=== PATIENT | female | born 1955 | race African-American/Black ===

== ENCOUNTER 2021-07-31 11:00 | Outpatient (RCR) | payer MEDICARE, SELFPAY ==
--- NOTE | 2021-05-29 10:35 | PTOPEVAL ---
Thank you for referring Angelina Peterson to [facility].? The patient is scheduled to be seen for therapy? 2x/week for 8 weeks. Please review, sign, date and return this plan of care KRISTAL. I agree with and certify that the following plan of care is medically necessary. Referring Physician Date Attending Provider: Santiago Reynolds, MD Diagnosis right trochanteric bursitis Onset 05/30 Cause walking Additional Evaluation Detail she is retired. Hobbies are seated task, swimming, playing with grandkids. Subjective Information She walking every day 05/30, Query Text:As Reported By Patient/ when her hip pain started. She Family was performing a 30' workout program, but stopped due to pain. Water and swimming improves her pain. She does not have regular access to a pool. She had therapy 07/28 for strengthening exercises with no relief of symptoms. She has been using lidocane cream and patch with no significant relief. 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 Pain Assessment Right Hip(s) Reported Pain Level 5 Pain Description Sharp,Throbbing Pain Frequency Chronic,Continuous Greatest Pain Intensity 10 Pain Aggravating Factors ADL's,Bending,Exercise/ Activity,Prolonged Position, Supine,Walking,Weight Bearing/ Standing Lower Extremity Range of Motion General Lower Extremity Range of Motion Gross Lower Extremity Range of Motion PROM: right hip flex: 90 dg, Comments painful left hip flex: 100 dg no pain Lower Extremity Muscle Strength Testing General Lower Extremity Strength Gross Lower Extremity Strength alverto knee flex/ext: 5/5 Hip Strength Left Hip Flexion Strength 4+ Good + Hip Extension Strength 5 Normal Hip Abduction Strength 3 Fair Right Hip Flexion Strength 4 Good Hip Extension Strength 3 Fair Hip Abduction Strength 3 Fair Hip Medial Rotation Strength 4- Good - Hip Lateral Rotation Strength 3+ Fair + Hip Strength Comments jordin
--- NOTE | 2021-06-12 11:01 | PCPTNOTE ---
Patient called & cancelled scheduled appointment this date due to snowy weather.
--- NOTE | 2021-06-26 12:54 | PCPTNOTE ---
Patient called & cancelled scheduled appointment this date due to icy weather.
--- NOTE | 2021-06-26 12:55 | PCPTNOTE ---
Patient called & cancelled scheduled appointment this date due to in family.
--- NOTE | 2021-07-01 15:44 | PCPTNOTE ---
Patient called & cancelled scheduled appointment this date due to having contact dermatitis.
--- NOTE | 2021-07-04 11:56 | PTOPEVAL ---
Physical Therapy Progress Note Thank you for referring Angelina Peterson to [facility].? See summary below for patient's updated function and objective limitations. She requires additional skilled therapy services to address her remaining limitations of muscle weakness, poor movement pattern and continued pain symptoms. She is progressing towards her goals and final HEP. The patient is scheduled to be seen for therapy?2 x/week for 4 weeks. Please review, sign, date and return this plan of care KRISTAL. I agree with and certify that the following plan of care is medically necessary. Referring Physician Date Attending Provider: Santiago Reynolds, MD Diagnosis right trochanteric bursitis Onset 05/30 Cause walking Additional Evaluation Detail she is retired. Hobbies are seated task, swimming, playing with grandkids. Subjective Information She has been DX with contact Query Text:As Reported By Patient/ dermatitis from the pool. Plus Family allergic reaction to eye drops. She reports improved pain and catching sensation when getting out of bed. She is getting in/out of car with improved tech. She is perform steps with decreased symptoms. Improved lizz with lifting and squatting motion. Pain Assessment Right Hip(s) Reported Pain Level 1 Pain Description Aching,Sharp Pain Frequency Chronic,Continuous Lowest Pain Intensity 1 Greatest Pain Intensity 3 Lower Extremity Range of Motion Gross Lower Extremity Range of Motion AROM: right hip flex: 100 dg, Comments no painful, PROM: 108 dg, no pain Lower Extremity Muscle Strength Testing Hip Strength Left Hip Flexion Strength 4+ Good + Hip Extension Strength 5 Normal Hip Abduction Strength 4- Good - Right Hip Flexion Strength 4+ Good + Hip Extension Strength 4 Good Hip Abduction Strength 3+ Fair + Hip Medial Rotation Strength 4+ Good + Hip Lateral Rotation Strength 4+ Good + Knee Strength Bilateral Knee Flexion Strength 5 Normal Knee Extension Strength 5 Normal Muscle Length Testing Muscle Length Testing Two-Joint Hip Flexor Shortened Muscles Short (R) Iliopsoas,Short (L) Iliopsoas,Short (R) Rectus Femoris,Short (L) Rectus Femoris,Short (R) Ilial Tib Band,Short (L) Ilial Tib Band Right Prone Hip Internal Rotator Length 22 (degrees)
--- NOTE | 2021-07-22 12:02 | PCPTNOTE ---
Patient called & cancelled scheduled appointment this date due to unable to make appt. She has been rescheduled for next week.
--- NOTE | 2021-07-29 11:28 | PCPTNOTE ---
Patient called & cancelled scheduled appointment this date due to having car trouble.
--- NOTE | 2021-07-31 11:53 | PTOPEVAL ---
Physical Therapy Discharge Summary Thank you for referring Angelina Peterson to [facility].?Angelina has attended 14 therapy visits to address her hip pain. As a result of skilled therapy services she demonstrates improved pain, improved strength and improved function. She has reached maximal potential with skilled therapy services at this time. Will DC physical therapy services. Please review, sign, date and return this discharge summary KRISTAL. I agree with and certify that the following plan of care is medically necessary. Referring Physician Date Attending Provider: Santiago Reynolds, Diagnosis right trochanteric bursitis Onset 05/30 Cause walking Additional Evaluation Detail she is retired. Hobbies are seated task, swimming, playing with grandkids. Subjective Information She has increased pain with Query Text:As Reported By Patient/ exercises to 07/17. She has Family improved pain and soreness in the morning. She denies any limitations with getting in/out of car with improved tech. She is lizz walking and HEP with decreased symptoms and pain. She has been walking more in the community with slight increased symptoms. 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 Pain Assessment Right Hip(s) Reported Pain Level 0 Pain Description Soreness Lowest Pain Intensity 0 Greatest Pain Intensity 5 Pain Aggravating Factors Exercise/Activity,Walking Lower Extremity Muscle Strength Testing Hip Strength Left Hip Flexion Strength 4+ Good + Hip Extension Strength 5 Normal Hip Abduction Strength 4- Good - Right Hip Flexion Strength 4+ Good + Hip Extension Strength 4+ Good + Hip Abduction Strength 4- Good - Hip Medial Rotation Strength 5 Normal Hip Lateral Rotation Strength 5 Normal Knee Strength Bilateral Knee Flexion Strength 5 Normal Knee Extension Strength 5 Normal Palpation Assessment Palpation no tenderness of right TFL, ITB, quad region, mild tenderness of greater trochanter no tenderness of left TFL, quad region, and glut region Special Tests-Lower Extremity Trendelenburg Sign Negative Left,Positive Right PEGGY
== END 2021-07-31 15:46 | disposition home or self-care (01) ==
LOC: ANHPT 11:00
PROVIDERS: PCP Internal Medicine; Visit Provider Internal Medicine
DX: M70.61 Trochanteric bursitis, right hip (principal)
CPT/HCPCS: 97014; 97110; 97112; 97113; 97140; 97161; 97530; G0283